=== PATIENT | female | born 1960 | race Caucasian/White ===

== ENCOUNTER → 2018-04-24 09:05 | Outpatient (REF) | payer BC, SELFPAY ==
[2018-04-24 21:25] LABS: Anion Gap 13.2 mmol/L (3-11); BUN 18 mg/dL (7-18); CO2 24.8 mmol/L (21.0-32.0); CREATININE 0.65 mg/dL (0.55-1.02); Calcium 9.2 mg/dL (8.5-10.1); Chloride 102 mmol/L (98-107); Glucose 164 mg/dL (70-100); Potassium 4.1 mmol/L (3.5-5.1); Sodium 140 mmol/L (136-145)
== END ==
LOC: NCHCN 09:05
PROVIDERS: PCP Nurse Practitioner Family; Visit Provider Nurse Practitioner Family
DX: Z00.00 Encounter for general adult medical examination without abnormal findings (principal); I10 Essential (primary) hypertension
CPT/HCPCS: 80048

== ENCOUNTER 2018-10-13 12:56 | Outpatient (REF) | payer BC, SELFPAY | END 2018-10-13 13:16 | LOC: NCHCN 12:56 | PROVIDERS: PCP Nurse Practitioner Family; Visit Provider Nurse Practitioner Family | DX: R30.0 Dysuria (principal) | CPT/HCPCS: 87077; 87086; 87186 ==

== ENCOUNTER 2019-07-16 11:10 | Outpatient (REF) | payer BC, SELFPAY ==
[2019-07-16 20:52] LABS: ALT 36 U/L (14-59); AST 17 U/L (15-37); Albumin 4.4 g/dL (3.4-5.0); Alkaline Phosphatase 119 U/L (46-116); Anion Gap 10.2 mmol/L (3-11); BUN 11 mg/dL (7-18); Bilirubin, Total 0.4 mg/dL (0.2-1.0); CO2 28.8 mmol/L (21.0-32.0); CREATININE 0.79 mg/dL (0.55-1.02); Chloride 99 mmol/L (98-107); Glucose 182 mg/dL (70-100); Potassium 4.3 mmol/L (3.5-5.1); Sodium 138 mmol/L (136-145); Total Protein 8.1 g/dL (6.4-8.2)
[2019-07-16 20:58] LABS: COMMENT (LAB VIEW ONLY) 64.69 mg/dL
== END 2019-07-16 11:30 ==
LOC: NCHCN 11:10
PROVIDERS: PCP Nurse Practitioner Family; Visit Provider Nurse Practitioner Family
DX: Z00.00 Encounter for general adult medical examination without abnormal findings (principal); E11.9 Type 2 diabetes mellitus without complications; I10 Essential (primary) hypertension
CPT/HCPCS: 80053; 82043; 82570

== ENCOUNTER 2019-07-30 01:37 | Outpatient (CLI) | payer BC, SELFPAY ==
--- NOTE | 2019-07-30 08:26 | DI.MAMMO_ITS ---
EXAM: MAMMO SCREENING CLINICAL HISTORY: SCREENING, WELL ADULT EXAM, Z00.00 TECHNIQUE: Mammograms were interpreted according to the usual protocol including computer analysis w [employer] CAD system, tomosynthesis and C-view imaging. COMPARISON: [id number] FINDINGS: The breasts are composed of heterogeneously dense tissue, breast density category C. There are no do minant masses or microcalcifications. There has been no significant interval change in comparison wi th the previous exams. IMPRESSION: Category 1, negative mammogram. Routine yearly screening mammograms are recommended. BI-RADS Cat 1 - Negative Breast Density - Category C - Heterogeneously dense
== END 2019-07-30 01:57 ==
PROVIDERS: PCP Nurse Practitioner Family; Visit Provider Nurse Practitioner Family
DX: Z00.00 Encounter for general adult medical examination without abnormal findings (principal); Z12.31 Encounter for screening mammogram for malignant neoplasm of breast
CPT/HCPCS: 77063; 77067

== ENCOUNTER 2020-03-11 08:24 | Outpatient (CLI) | payer BC, SELFPAY ==
[2020-03-11 22:52] LABS: COVID-19 RT-PCR UVMMC Result Negative (Negative)
== END 2020-03-11 08:44 ==
PROVIDERS: PCP Nurse Practitioner Family; Visit Provider Surgery
DX: Z11.59 Encounter for screening for other viral diseases (principal); Z01.818 Encounter for other preprocedural examination
CPT/HCPCS: U0003

== ENCOUNTER 2020-04-15 07:21 | Outpatient (CLI) | payer BC, SELFPAY ==
[2020-04-17 00:30] LABS: COVID-19 RT-PCR Result NEGATIVE (Negative)
== END 2020-04-15 07:41 ==
PROVIDERS: PCP Nurse Practitioner Family; Visit Provider Surgery
DX: Z11.59 Encounter for screening for other viral diseases (principal); Z01.818 Encounter for other preprocedural examination
CPT/HCPCS: U0003

== ENCOUNTER 2020-06-14 22:19 | Outpatient (REF) | payer BC, SELFPAY ==
[2020-06-14 21:47] LABS: HCT 37.8 % (36.0-46.0); MCH 28.8 pg (27.0-33.0); MCHC 31.7 % (32.0-36.0); MCV 90.9 fL (80-95); MPV 10.5 fL (8.0-11.0); Platelet Count 294 10^3/uL (130-400); RBC 4.16 10^6/uL (3.93-5.22); RDW 12.5 % (11.7-14.6); RDW-SD 41.5 fL; WBC 10.68 10^3/uL (4.4-10.8)
[2020-06-14 22:09] LABS: Iron 35 ug/dL (50-170)
[2020-06-14 22:35] LABS: ALT 18 U/L (14-59); AST 7 U/L (15-37); Albumin 3.8 g/dL (3.4-5.0); Alkaline Phosphatase 100 U/L (46-116); Bilirubin, Total 0.2 mg/dL (0.2-1.0); CREATININE 0.81 mg/dL (0.55-1.02); Ferritin 190 ng/mL (8-252); TSH 1.32 uIU/mL (0.36-3.74); Total Protein 7.1 g/dL (6.4-8.2); Vitamin B12 412 pg/mL (193-986)
[2020-06-14 22:49] LABS: Bilirubin, Direct 0.07 mg/dL (0.00-0.20)
[2020-06-16 04:57] LABS: Vitamin D 25 Total 15.2 ng/ml (30-100)
== END 2020-06-14 22:39 ==
LOC: NCHCN 22:19
PROVIDERS: PCP Nurse Practitioner Family; Visit Provider Physician Assistant
DX: E66.01 Morbid (severe) obesity due to excess calories (principal); Z68.38 Body mass index [BMI] 38.0-38.9, adult
CPT/HCPCS: 80076; 82306; 85027; 82565; 82607; 82728; 83540; 84443

== ENCOUNTER 2020-07-18 20:34 | Outpatient (REF) | payer BC, SELFPAY ==
[2020-07-18 22:32] LABS: COMMENT (LAB VIEW ONLY) 15.91 mg/dL
== END 2020-07-18 20:54 ==
LOC: NCHCN 20:34
PROVIDERS: PCP Nurse Practitioner Family; Visit Provider Nurse Practitioner Family
DX: E11.9 Type 2 diabetes mellitus without complications (principal); I10 Essential (primary) hypertension
CPT/HCPCS: 82043; 82570

== ENCOUNTER 2020-07-25 14:28 | Outpatient (REF) | payer SELFPAY ==
[2020-07-30 12:24] LABS: Patient Race White; SARS-CoV-2 RNA Undetected (Undetected); SARS-CoV-2 Specimen Source Nasal
== END 2020-07-25 14:48 ==
LOC: NCHCN 14:28
PROVIDERS: PCP Nurse Practitioner Family; Visit Provider Nurse Practitioner Family
DX: Z20.828 Contact with and (suspected) exposure to other viral communicable diseases (principal)
CPT/HCPCS: U0003

== ENCOUNTER 2020-08-01 18:07 | Outpatient (REF) | payer BC, SELFPAY ==
[2020-08-03 17:09] LABS: SARS-CoV-2 RNA Not Detected (NotDetected); SARS-CoV-2 RNA Source Nasal/Nares
== END 2020-08-01 18:27 ==
LOC: NCHCN 18:07
PROVIDERS: PCP Nurse Practitioner Family; Visit Provider Nurse Practitioner Family
DX: Z20.828 Contact with and (suspected) exposure to other viral communicable diseases (principal)
CPT/HCPCS: U0003

== ENCOUNTER 2020-08-23 08:04 | Outpatient (REF) | payer BC, SELFPAY ==
[2020-08-23 21:41] LABS: HCT 40.1 % (36.0-46.0); MCH 29.1 pg (27.0-33.0); MCHC 32.4 % (32.0-36.0); MCV 89.7 fL (80-95); MPV 10.6 fL (8.0-11.0); Platelet Count 291 10^3/uL (130-400); RBC 4.47 10^6/uL (3.93-5.22); RDW 12.6 % (11.7-14.6); RDW-SD 41.7 fL; WBC 11.42 10^3/uL (4.4-10.8)
[2020-08-23 22:08] LABS: Iron 56 ug/dL (50-170)
[2020-08-23 22:19] LABS: Anion Gap 10.8 mmol/L (3-11); BUN 13 mg/dL (7-18); CO2 27.2 mmol/L (21.0-32.0); CREATININE 0.88 mg/dL (0.55-1.02); Calcium 9.3 mg/dL (8.5-10.1); Chloride 100 mmol/L (98-107); Ferritin 165 ng/mL (8-252); Glucose 151 mg/dL (74-106); Potassium 4.2 mmol/L (3.5-5.1); Sodium 138 mmol/L (136-145)
[2020-08-23 22:31] LABS: Vitamin D 25 Total 20.9 ng/ml (30-100)
== END 2020-08-23 08:24 ==
LOC: NCHCN 08:04
PROVIDERS: PCP Nurse Practitioner Family; Visit Provider Nurse Practitioner Family
DX: I10 Essential (primary) hypertension (principal); E11.9 Type 2 diabetes mellitus without complications; E61.1 Iron deficiency; E55.9 Vitamin D deficiency, unspecified; K21.9 Gastro-esophageal reflux disease without esophagitis; Z51.81 Encounter for therapeutic drug level monitoring
CPT/HCPCS: 80048; 82306; 85027; 82728; 83540; 83735

== ENCOUNTER 2020-09-08 00:41 | Outpatient (CLI) | payer BC, SELFPAY ==
--- NOTE | 2020-09-08 13:19 | DI.MAMMO_ITS ---
EXAM: MG MAMMO SCREENING CLINICAL HISTORY: SCREENING,Z12.39 TECHNIQUE: Bilateral full field digital CC and MLO mammographic images were obtained with 3D tomosyn thesis and utilizing computer aided detection (CAD). COMPARISON: Available for comparison. FINDINGS: Masses/Architectural Distortion: None seen. Microcalcifications: No suspicious pleomorphic-type are seen. Skin Thickening/Nipple Retraction: None. IMPRESSION: 1. No significant interval change with no specific features of malignancy noted. 2. Unless there is more urgent need, screening mammography is recommended, as per [employer] guidelines. BI-RADS Category 1 - Negative Breast Density - Category C - Heterogeneously dense Breast density category C or D implies that the patient has dense breast tissue. Dense breast tissue is very common and is not abnormal but dense breast tissue can make it harder to find cancer on a ma mmogram. Also, dense breast tissue may increase their breast cancer risk. This information about the result of the mammogram report was provided to the patient to raise their awareness. Use this report when you speak with the patient about their risks for breast cancer, which includes their family hist ory. At that time, you may recommend for more screening tests (Ultrasound or MRI) as they might be us eful based on their risk. A negative radiographic report should not delay biopsy if a dominant or clinically suspicious mass is present. Up to ten percent of cancers are not identified on mammography. A negative report may reinforce clinical impression. Adenosis and dense breasts may obscure an underlying neoplasm. False positive reports average 6 to 10%. Patient will receive a letter notifying them of these results.
== END 2020-09-08 01:01 ==
PROVIDERS: PCP Nurse Practitioner Family; Visit Provider Nurse Practitioner Family
DX: Z12.31 Encounter for screening mammogram for malignant neoplasm of breast (principal)
CPT/HCPCS: 77063; 77067

== ENCOUNTER 2021-02-03 09:37 | Outpatient (REF) | payer BC, SELFPAY ==
--- NOTE | 2021-02-02 11:30 | PAPFT_PTH ---
PATIENT: Shayy Marx LOC: [facility]#:[id number] AGE/SX: 60/F ROOM: RE02/03/[address]: Rosalba Bettencourt : 1960 BED: DIS: 02/03/2021 SPEC #: [id number] RECD: 02/03/21 11:52 STATUS: GILLIAN REXavier #: [id number] FABIAN: 02/02/21 11:[address]: Rosalba Ortiz DEPT: [facility], [facility] Cytology RECD BY: Claire Longo Tissues: 1 - CX/ENDOCX FOR PAP SMEARS Procedures: PAP THIN PREP/UVM Screening HPV DNA PROBE Comments: [id number]
--- NOTE | 2021-02-02 11:30 | ENDOMET_PTH ---
PATIENT: Shayy Marx LOC: [facility] U#:[id number] AGE/SX: 60/F ROOM: RE02/03/[address]: Rosalba Bettencourt : 1960 BED: DIS: 02/03/2021 SPEC #: [id number] RECD: 02/03/21 09:56 STATUS: GILLIAN REXavier #: [id number] FABIAN: 02/02/21 11:[address]: Rosalba Ortiz DEPT: Surgical Specimen RECD BY: Claire Longo Tissues: 1 - ENDOMETRIUM BX/ENEDELIAETTE Procedures: GROSS AND MICRO LEVEL 4 Comments: [id number]
== END 2021-02-03 09:38 | disposition home or self-care (01) ==
LOC: NCHCN 09:37
PROVIDERS: PCP Nurse Practitioner Family; Visit Provider Nurse Practitioner Family
DX: N85.8 Other specified noninflammatory disorders of uterus (principal); N95.0 Postmenopausal bleeding; N88.8 Other specified noninflammatory disorders of cervix uteri; Z12.4 Encounter for screening for malignant neoplasm of cervix; R87.610 Atypical squamous cells of undetermined significance on cytologic smear of cervix (ASC-US); Z11.51 Encounter for screening for human papillomavirus (HPV)
CPT/HCPCS: 88142; 88305; 87624

== ENCOUNTER 2021-08-01 12:31 | Outpatient (REF) | payer BC, SELFPAY ==
[2021-08-01 22:05] LABS: COMMENT (LAB VIEW ONLY) 15.85 mg/dL; Microalb ug/mg Crea 19.6 ug/mg Cr
== END 2021-08-01 12:32 | disposition home or self-care (01) ==
LOC: NCHCN 12:31
PROVIDERS: PCP Nurse Practitioner Family; Visit Provider Nurse Practitioner Family
DX: I10 Essential (primary) hypertension (principal); R80.9 Proteinuria, unspecified; Z86.39 Personal history of other endocrine, nutritional and metabolic disease
CPT/HCPCS: 82043; 82570

== ENCOUNTER 2021-09-11 03:15 | Outpatient (CLI) | payer BC, SELFPAY ==
--- NOTE | 2021-09-11 13:47 | DI.US_ITS ---
APPROVED REPORT EXAM: Comprehensive 2D, Doppler, and color-flow Echocardiogram Other Information Study Quality: Good Conclusion Normal left ventricular wall thickness and chamber size. Estimated ejection fraction is 55 to 60%. There are no segmental wall motion abnormalities Normal right ventricular size and systolic function Both atria are normal in size There is no structural or hemodynamically significant valvular disease Mildly dilated ascending aorta measuring 3.82 cm Wall motion Left Ventricle The left ventricle is normal size. The left ventricular systolic function is normal. The left ventric ular ejection fraction is within the normal range. There is normal left ventricular wall thickness. T here is normal LV segmental wall motion. There is no ventricular septal defect visualized. LVEF is 58 %. Right Ventricle The right ventricle is normal size. The right ventricular systolic function is normal. The RVSP is 25 .0_ mmHg. Atria The left atrium size is normal. The right atrium size is normal. The interatrial septum is intact wit h no evidence for an atrial septal defect. Aortic Valve The aortic valve is normal in structure. Aortic valve is trileaflet. There is no aortic valvular sten osis. No aortic regurgitation is present. Mitral Valve The mitral valve is normal in structure. No evidence of mitral valve stenosis. Trace mitral regurgita tion. Tricuspid Valve The tricuspid valve is normal in structure. There is no tricuspid valve stenosis. Trace tricuspid reg urgitation. Pulmonic Valve The pulmonary valve is normal in structure. There is no pulmonic valvular stenosis. Trace pulmonic re gurgitation. Great Vessels The aortic root is normal in size. The ascending aorta is mildly dilated.3.82 cm IVC is normal in siz e and collapses >50% with inspiration. Pericardium There is no pericardial effusion. 2D Dimensions IVSD d PLAX 0.95 cm F: 0.6-1.0 LV Vol A2C d MOD 123.5 mL LVPW d PLAX 0.96 cm F: 0.6 - 1.0 LV Vol A4C d MOD 116.3 mL LVID d PLAX 4.37 cm F: 3.8 - 5.2 LA vol/ BSA A2C s A-L 27.7 mL/m2 LVDs 2.85 cm F: 2.2 - 3.5 LA vol/ BSA A4C s A-L 27.1 mL/m2 Ao Root d 2.48 cm F: 2.7 - 3.3 LA Vol/ BSA Biplane s A-L 28.7 mL/m2 RA Area A4C 15.97 cm2 LA Area A4C s MOD 18.77 cm2 RA Vol/ BSA A4C s A-L 19.6 mL/m2 LA Area A2C s MOD 19.85 cm2 Ao Asc Diam d 3.82 cm F: 2.3 - 3.1 LV EF A4C MOD 58.2 % LV EF Teichholz 64.1 % LV EF A2C MOD 59.1 % LVEF (Benitez's) 58.44 % F: 54 - 74 LV EF Biplane MOD 58.4 % LV Volume 90.62 mL F: 46 - 106 SV 70.77 mL LV Volume Index 45.08 mL/m2 F: 29 - 61 SV Index 35.15 mL/m2 LV Vol Biplane MOD 121.1 mL FS 34.65 % M-Mode TAPSE 2.56 cm (M/F) >1.7 LV Diastology MV E' medial 0.133 (>0.07 m/s) E/A Ratio 1.4 LV E/e MED 9.20 (<14) MV E Vmax 1.23 (0.4-1.3 m/s) MV E' lateral 0.109 (>0.1 m/s) MV A Vmax 0.90 (0.4-1.3 m/s) LV E/e LAT 11.30 (<14) MV E/A Ratio 1.36 MV E/E' medial 9.25 MV E/E' lateral 11.33 Aortic Valve LVOT Area 2.56 cm2 AoV Area Vmax 1.82 cm2 LVOT Vmax 1.19 m/s AoV Area/ BSA (Vmax) 0.90 cm2/m2 LVOT Mean Uche. 0.81 m/s JULIA Mean Uche. 1.71 cm2 LVOT Peak Grad 5.6 mmHg JULIA Mean Uche. Index 0.85 cm2/m2 LVOT Mean Grad 3.1 mmHg LVOT VTI 0.317 m LVOT Diam s 1.80 cm AoV Vmax 1.67 m/s Velocity Ratio 0.71 AoV Mean Uche. 1.22 m/s AoV Peak Grad 11.1 mmHg LVOT SV 81.19 mL AoV Mean Grad 6.5 mmHg AoV VTI 0.415 m AoV Area VTI 1.96 cm2 AoV Area/ BSA (VTI) 0.97 cm/m2 Mitral Valve MV DT 191 (160-240 msec) MV PHT 55 msec MV Area PHT 3.98 cm2 MV VTI 0.482 m MV Area VTI 1.69 (4.0-6.0 cm2) Pulmonary Valve PV Vmax 1.26 (0.5-1.5 m/s) RVOT Peak Gr. 3.54 mmHg PV Peak Grad 6.3 mmHg RVOT Mean Gr. 1.90 mmHg PV Mean Grad 3.1 mmHg RVOT VTI 0.217 m PV VTI 0.269 m RVOT Vmax 0.94 m/s Tricuspid Valve TR Peak Grad 22.0 mmHg TR Vmax 2.35 m/s RA Pressure 3.00 mmHg RVSP (TR) 25.0 mmHg
--- NOTE | 2021-09-11 15:00 | DI.MAMMO_ITS ---
Exam(s) MAMMO SCREENING EXAM: MAMMO SCREENING CLINICAL HISTORY: YEARLY MAMMO SCREENING, Z12.31. TECHNIQUE: Bilateral full field digital CC and MLO mammographic images were obtained with 3D tomosyn thesis and utilizing computer aided detection (CAD). COMPARISON: Prior mammograms dating back to 2012, the most recent being August 2020. Significant family history. Mother was diagnosed with breast cancer prior to age 50. FINDINGS: There has been no significant change in the appearance and distribution of fibroglandular tissue. Sk in mole over the upper outer quadrant of the left breast is noted unchanged. This was marked as a sk in mole in 2012 and is unchanged from that time. No new significant radiograph findings in left breast. In the right breast on 3D MLO imaging there is an asymmetric density-noncalcified nodule measuring ap proximately 4 x 3 millimeters located 4 cm in from the nipple, not evident on prior studies. No fausto gnant-appearing microcalcification groups is region or elsewhere in either breast There is no significant architectural distortion nor skin thickening-retraction. IMPRESSION: 1. No radiographic evidence of malignancy in left breast. 2. Right breast nodular density as described above, as seen on 3D MLO view. Spot compression 3D view and ultrasound recommended BI-RADS Category 0 - Assessment Incomplete: Need additional imaging evaluation Breast Density - Category C - Heterogeneously dense Breast density Category C or D implies that the patient has dense breast tissue. Dense breast tissue can make it harder to find cancer on a mammogram. Dense breast tissue is also associated with an incr eased risk of breast cancer. This information about the result of the mammogram report was provided to the patient to raise their awareness. Use this report when you speak with the patient about their risks for breast cancer, which includes their family history. At that time, you may recommend additional screening tests (Ultrasoun d or MRI) as these tests may add significant information. A negative radiographic report should not delay biopsy if a dominant or clinically suspicious mass is present. Up to ten percent of cancers are not identified on mammography. A negative report may reinforce clinical impression. Adenosis and dense breasts may obscure an underlying neoplasm. False positive reports average 6 to 10%. Patient will receive a letter notifying them of these results.
== END 2021-09-11 03:35 ==
PROVIDERS: PCP Nurse Practitioner Family; Visit Provider Nurse Practitioner Family
DX: R01.1 Cardiac murmur, unspecified (principal); I77.810 Thoracic aortic ectasia; Z12.31 Encounter for screening mammogram for malignant neoplasm of breast; R92.8 Other abnormal and inconclusive findings on diagnostic imaging of breast
CPT/HCPCS: 77063; 77067; 93306

== ENCOUNTER 2021-09-20 02:07 | Outpatient (CLI) | payer BC, SELFPAY ==
--- NOTE | 2021-09-20 13:00 | DI.MAMMO_ITS ---
Exam(s) MG MAMMO SCREEN CALL BACK UNI US BREAST RT LIMITED EXAM: US BREAST RT LIMITED CLINICAL HISTORY: ASYMMETRIC DENSITY-NONCALCIFIED NODULE 4 CM FROM NIPPLE TECHNIQUE: Ultrasound performed using standard protocol. COMPARISON: US US ECHOCARDIOGRAM from 09/11/2021 MG MG MAMMO SCREEN CALL BACK UNI from 09/20/2021 FINDINGS: Additional mammographic views of the right breast and right breast ultrasound are interpreted in conj unction. These examinations were obtained to evaluate well-circumscribed nodule seen on recent mammo gram in the 6 o'clock position in the right breast. Additional mammographic views fail to show this nodule persist. Breast ultrasound shows an approximately 3 millimeter in diameter cyst of the 6 o'cl ock position which may correspond to the mammographically identified nodule. Additionally, about 2 cm from the nipple in the 9 o'clock position, there is a bilobed 4 x 6 x 3 mill imeter in diameter low echogenicity homogeneous well-circumscribed nodule without internal vascular f low. This may represent a small hemorrhagic cyst or fibroadenoma. Malignancy not excluded, follow-u p right breast ultrasound recommended in 6 months to assess the stability of this small nodule. IMPRESSION: 6 millimeter nodule, indeterminate but likely benign, seen on ultrasound only in the 9 o'clock positi on 2 cm from the nipple. Malignancy not excluded, follow-up right breast ultrasound recommended in 6 months. BI-RADS Cat 3 - 6 month - Probably Benign Finding: Recommend follow-up imaging in 6 months Breast Density - Category C - Heterogeneously dense DATA REPOSITORY:
== END 2021-09-20 02:27 ==
PROVIDERS: PCP Nurse Practitioner Family; Visit Provider Nurse Practitioner Family
DX: Z12.31 Encounter for screening mammogram for malignant neoplasm of breast (principal); R92.8 Other abnormal and inconclusive findings on diagnostic imaging of breast; N60.01 Solitary cyst of right breast; N63.11 Unspecified lump in the right breast, upper outer quadrant
CPT/HCPCS: 76642; 77063; 77067

== ENCOUNTER 2022-01-29 18:37 | Outpatient (REF) | payer BC, SELFPAY ==
[2022-01-29 15:54] LABS: HCT 38.5 % (36.0-46.0); HGB 12.6 g/dL (11.2-15.7); MCH 31.3 pg (27.0-33.0); MCHC 32.7 % (32.0-36.0); MCV 96 fL (80-95); Platelet Count 199 10^3/uL (130-400); RBC 4.02 10^6/uL (3.93-5.22); RDW 12.5 % (11.7-14.6); RDW-SD 43.6 fL; WBC 7.28 10^3/uL (4.4-10.8)
[2022-01-29 16:10] LABS: Hemoglobin A1C 5.1 % (<5.7)
[2022-01-29 17:07] LABS: Iron 127 ug/dL (50-170); Total Iron Binding Capacity 338 ug/dL (250-450); Transferrin Sat 38 % (15-50)
[2022-01-29 17:23] LABS: Vitamin D 25 Total 38.3 ng/mL (30-100)
[2022-01-29 17:26] LABS: Anion Gap 9.8 mmol/L (3-11); BUN 15 mg/dL (7-18); CO2 28.2 mmol/L (21.0-32.0); CREATININE 0.8 mg/dL (0.55-1.02); Calculated LDL 151 mg/dL (<100); Chloride 105 mmol/L (98-107); Cholesterol 233 mg/dL (<200); Glucose 100 mg/dL (74-106); HDL Cholesterol 65 mg/dL (40-60); Potassium 4.3 mmol/L (3.5-5.1); Sodium 143 mmol/L (136-145); Triglyceride 86 mg/dL (<150); Vitamin B12 984 pg/mL (193-986)
== END 2022-01-29 18:38 | disposition home or self-care (01) ==
LOC: NCHCN 18:37
PROVIDERS: PCP Nurse Practitioner Family; Visit Provider Nurse Practitioner Family
DX: I10 Essential (primary) hypertension (principal); E55.9 Vitamin D deficiency, unspecified; E61.1 Iron deficiency; E66.9 Obesity, unspecified; Z86.39 Personal history of other endocrine, nutritional and metabolic disease; Z98.84 Bariatric surgery status
CPT/HCPCS: 80048; 80061; 82306; 85027; 82607; 83036; 83540; 83550

== ENCOUNTER → 2022-04-06 01:36 | Outpatient (CLI) | payer BC, SELFPAY ==
--- NOTE | 2022-04-06 | DI.US_ITS ---
Exam(s) US NEEDLE LOCAL BREAST WO RAD EXAM: US NEEDLE LOCAL BREAST WO RAD CLINICAL HISTORY: RT BREAST MASS, ULTRASOUND GUIDED BIOPSY. Right Breast. TECHNIQUE: Ultrasound was provided for Dr. Duran for guidance with right breast biopsy. COMPARISON: MG MG MAMMO SCREENING from 09/11/2021 MG MG MAMMO SCREEN CALL BACK UNI from 09/20/2021 US US BREAST RT LIMITED from 09/20/2021 US US BREAST RT COMPLETE from 03/20/2022 FINDINGS: The previously noted mass was identified in the 9 o'clock position 3 cm from the nipple. 2 biopsy sa mples were obtained. A tissue marker clip was placed. Please see procedure note for details. IMPRESSION: Successful Ultrasound-guided Breast Biopsy.
--- NOTE | 2022-04-06 13:11 | BREAST_PTH ---
PATIENT: Shayy Marx LOC: [facility] U#:[id number] AGE/SX: 65/F ROOM: RE04/06/[address]: Cesia Duran MD : 1960 BED: DIS: SPEC #: [id number] RECD: 04/06/22 13:34 STATUS: GILLIAN HAGAN #: [id number] FABIAN: 04/06/22 13:[address]: Cesia Duran DEPT: Surgical Specimen RECD BY: Yue Miranda ENTERED: 04/06/22 13:35 SP TYPE: Breast OTHR DR: Rosalba Bettencourt Tissues: 1 - BREAST BX NEEDLE Procedures: GROSS AND MICRO LEVEL 4 Comments: [id number]
--- NOTE | 2022-04-06 16:18 | W.PM.OP ---
Date of service: 04/06/22 Time of Service: 16:18 Operative Note Operative Note DATE OF PROCEDURE: 04/06/22 PRE-OP DIAGNOSIS: Right Breast lesion POST-OP DIAGNOSIS: same PROCEDURE: US guided Core needle biopsy SURGEON: Cesia Duran Refer to Anesthesia Record PATHOLOGY: other (core needle biopsy) COMPLICATIONS: None Patient was transported to: no change Patient's condition: stable Procedure Description: Pre-op Dx: Right Breast Mass Post-op Dx: same Procedure: US quided Right Breast Biopsy Surgeon: Santos Duran MD Anesthesia: Local anesthesia with 1% Lidocaine Blood loss: 2 cc Specimen: Core needle biopsy Complications: no immediate complications Procedure: After informed consent was obtained the patient was placed in a supine position. Us was done of the Breast and the lesion was localized by the US tech. The skin was cleaned with alcohol and infiltrated with the above local anesthetic. The skin was then prepped. An incision was made with an 11 blade. Using a 14 gauge core needle 2 specimens were removed and placed on telfa and placed in formalin. A small clip was then placed into the lesion under US guidence. The skin was cleaned and dried and a band aid was applied. The patient tolerated the procedure well and there were no immediate complications.
== END ==
PROVIDERS: PCP Nurse Practitioner Family; Visit Provider Surgery
DX: N60.11 Diffuse cystic mastopathy of right breast (principal)
CPT/HCPCS: 19083; 88305; 76942

== ENCOUNTER 2022-08-03 14:58 | Outpatient (REF) | payer BC, SELFPAY ==
[2022-08-03 21:10] LABS: BUN 19 mg/dL (7-18); CREATININE 0.8 mg/dL (0.55-1.02); Estimated GFR 84.82 (mL/min/1.73m2)
== END 2022-08-03 14:59 | disposition home or self-care (01) ==
LOC: NCHCN 14:58
PROVIDERS: PCP Nurse Practitioner Family; Visit Provider Nurse Practitioner Family
DX: I77.810 Thoracic aortic ectasia (principal)
CPT/HCPCS: 84520; 82565

== ENCOUNTER 2022-09-14 00:33 | Outpatient (CLI) | payer BC, SELFPAY ==
--- NOTE | 2022-09-14 07:15 | DI.MAMMO_ITS ---
Exam(s) US BREAST RT LIMITED MG MAMMO SCREENING EXAM: MG MAMMO SCREENING and right breast ultrasound CLINICAL HISTORY: screening,z12.31 TECHNIQUE: Mammograms were interpreted according to the usual protocol including computer analysis w ith CAD system, tomosynthesis and 2D and C-view imaging. Entire right breast ultrasound was performed. COMPARISON: Mammograms from 11 September 2021, 20 September 2021 as well as ultrasound from 20 March 2022 and 06 April 2022. Exams back to 2014 were also reviewed. FINDINGS: Bilateral mammograms: The breasts are composed of heterogeneously dense fibroglandular tissue, breast density category C. A biopsy marker is now noted in the lateral central right breast tissue. No nodule is visible on cassy mogram. No suspicious masses or suspicious calcifications are noted in either breast. Right breast ultrasound: Right breast ultrasound shows a smoothly marginated oval nodule containing a biopsy marker clip in t he 9 o'clock position 2 centimeters from the nipple. There is no internal blood flow. It measures 7 x 4 x 6 millimeters. No suspicious features. IMPRESSION: Biopsy marker clip is noted within the previously noted nodule identified on ultrasound. No suspicio us findings on mammography. BI-RADS Cat 2 - Benign Findings Breast Density - Category C - Heterogeneously dense A negative radiographic report should not delay biopsy if a dominant or clinically suspicious mass is present. Up to ten percent of cancers are not identified on mammography. A negative report may reinforce clinical impression. Adenosis and dense breasts may obscure an underlying neoplasm. False positive reports average 6 to 10%. Patient will receive a letter notifying them of these results. The patient will receive a letter notifying them of these results.
== END 2022-09-14 00:53 ==
LOC: DI 00:33
PROVIDERS: PCP Nurse Practitioner Family; Visit Provider Surgery
DX: Z12.31 Encounter for screening mammogram for malignant neoplasm of breast (principal); N63.11 Unspecified lump in the right breast, upper outer quadrant; Z98.890 Other specified postprocedural states
CPT/HCPCS: 76642; 77063; 77067

== ENCOUNTER 2023-05-27 17:44 | Outpatient (REF) | payer BC, SELFPAY ==
[2023-05-27 21:08] LABS: HCT 37.5 % (36.0-46.0); HGB 12.6 g/dL (11.2-15.7); MCHC 33.6 % (32.0-36.0); MCV 92 fL (80-95); MPV 10.2 fL (8.0-11.0); Platelet Count 196 10^3/uL (130-400); RBC 4.07 10^6/uL (3.93-5.22); RDW 12.6 % (11.7-14.6); RDW-SD 42.4 fL; WBC 8.56 10^3/uL (4.4-10.8)
[2023-05-27 21:24] LABS: Hemoglobin A1C 5.8 % (<5.7)
[2023-05-27 21:49] LABS: Vitamin D 25 Total 34.6 ng/mL (30-100)
[2023-05-27 21:56] LABS: ALT 27 U/L (14-59); AST 18 U/L (15-37); Alkaline Phosphatase 103 U/L (46-116); Anion Gap 8.7 mmol/L (3-11); BUN 16 mg/dL (7-18); Bilirubin, Total 0.2 mg/dL (0.2-1.0); CO2 27.3 mmol/L (21.0-32.0); CREATININE 0.7 mg/dL (0.55-1.02); Calcium 9.2 mg/dL (8.5-10.1); Calculated LDL 157 mg/dL (<100); Chloride 105 mmol/L (98-107); Cholesterol 245 mg/dL (<200); Estimated GFR 98.95 (mL/min/1.73m2); Glucose 103 mg/dL (74-106); HDL Cholesterol 67 mg/dL (40-60); Potassium 4.3 mmol/L (3.5-5.1); Sodium 141 mmol/L (136-145); TSH 1.49 uIU/mL (0.36-3.74); Total Protein 7.3 g/dL (6.4-8.2); Triglyceride 107 mg/dL (<150); Vitamin B12 1092 pg/mL (193-986)
[2023-05-27 21:58] LABS: Folate > 20.0 ng/mL (8.6-20.0)
[2023-05-27 22:09] LABS: Iron 48 ug/dL (50-170); Total Iron Binding Capacity 322 ug/dL (250-450); Transferrin Sat 15 % (15-50)
== END 2023-05-27 17:45 | disposition home or self-care (01) ==
LOC: NCHCN 17:44
PROVIDERS: PCP Nurse Practitioner Family; Referring Provider Physician Assistant; Visit Provider Nurse Practitioner Family
DX: I10 Essential (primary) hypertension (principal); E78.5 Hyperlipidemia, unspecified; Z86.39 Personal history of other endocrine, nutritional and metabolic disease; Z98.84 Bariatric surgery status; E55.9 Vitamin D deficiency, unspecified
CPT/HCPCS: 80053; 80061; 82306; 85027; 82607; 82746; 83036; 83540; 83550; 84443

== ENCOUNTER → 2023-09-18 03:52 | Outpatient (CLI) | payer BC, SELFPAY ==
--- NOTE | 2023-09-18 | DI.MAMMO_ITS ---
Exam(s) MAMMO SCREENING EXAM: MAMMO SCREENING CLINICAL HISTORY: SCREENING MAMMO FOR BREAST CANCER Z12.31 TECHNIQUE: Mammograms were interpreted according to the usual protocol including computer analysis w [employer] CAD system, tomosynthesis and C-view imaging. COMPARISON: 2014 through 2021 FINDINGS: The breasts are composed of heterogeneously dense fibroglandular densities, Breast Density category C . No suspicious masses or suspicious microcalcifications are seen. A biopsy marker clip is again noted in the upper outer quadrant of the right breast. No skin thickening or abnormal axillary lymph nodes are seen. There has been no significant change from prior exams. IMPRESSION: BI-RADS Category 1, Negative mammogram. Yearly screening mammography is recommended. Breast Density Category C, heterogeneously Dense. The mammogram demonstrates the patient's breast tissue is dense. Dense breast tissue is very common a nd is not abnormal but dense breast tissue can make it harder to find cancer on a mammogram. Also, de nse breast tissue may increase breast cancer risk. This information about the result of the mammogram report was provided to the patient to raise their awareness. Use this report when you speak with the patient about their risks for breast cancer, which includes their family history. At that time, you may recommend additional screening tests (Ultrasound or MRI) as they might be useful based on their r isk. A negative radiographic report should not delay biopsy if a dominant or clinically suspicious mass is present. Up to ten percent of cancers are not identified on mammography. A negative report may reinforce clinical impression. Adenosis and dense breasts may obscure an underlying neoplasm. False positive reports average 6 to 10%.
== END ==
PROVIDERS: PCP Nurse Practitioner Family; Visit Provider Nurse Practitioner Family
DX: Z12.31 Encounter for screening mammogram for malignant neoplasm of breast (principal)
CPT/HCPCS: 77063; 77067

== ENCOUNTER 2024-05-08 08:51 | Outpatient (REF) | payer BC, SELFPAY ==
[2024-05-08 14:50] LABS: HCT 39.2 % (36.0-46.0); MCH 31.3 pg (27.0-33.0); MCHC 33.2 % (32.0-36.0); MCV 94 fL (80-95); MPV 9.8 fL (8.0-11.0); Platelet Count 232 10^3/uL (130-400); RBC 4.16 10^6/uL (3.93-5.22); RDW 12.2 % (11.7-14.6); RDW-SD 42.1 fL; WBC 8.28 10^3/uL (4.4-10.8)
[2024-05-08 15:11] LABS: Iron 89 ug/dL (50-170); Total Iron Binding Capacity 330 ug/dL (250-450); Transferrin Sat 27 % (15-50)
[2024-05-08 15:30] LABS: ALT 25 U/L (14-59); AST 16 U/L (15-37); Albumin 3.9 g/dL (3.4-5.0); Alkaline Phosphatase 106 U/L (46-116); Anion Gap 7.8 mmol/L (3-11); BUN 10 mg/dL (7-18); Bilirubin, Total 0.53 mg/dL (0.2-1.0); CO2 28.2 mmol/L (21.0-32.0); CREATININE 0.8 mg/dL (0.55-1.02); Calcium 9.2 mg/dL (8.5-10.1); Calculated LDL 143 mg/dL (<100); Chloride 104 mmol/L (98-107); Cholesterol 225 mg/dL (<200); Estimated GFR 83.78 (mL/min/1.73m2); Glucose 96 mg/dL (74-106); HDL Cholesterol 65 mg/dL (40-60); Potassium 4.1 mmol/L (3.5-5.1); Sodium 140 mmol/L (136-145); TSH 1.64 uIU/Ml (0.36-3.74); Total Protein 7.4 g/dL (6.4-8.2); Triglyceride 85 mg/dL (<150); Vitamin D 25 Total 28.7 ng/mL (30-100)
== END 2024-05-08 08:52 | disposition home or self-care (01) ==
LOC: NCHCN 08:51
PROVIDERS: PCP Nurse Practitioner Family; Visit Provider Nurse Practitioner Family
DX: I10 Essential (primary) hypertension (principal); E61.1 Iron deficiency; E78.5 Hyperlipidemia, unspecified; E55.9 Vitamin D deficiency, unspecified; R73.03 Prediabetes
CPT/HCPCS: 80053; 80061; 82306; 85027; 83036; 83540; 83550; 84443

== ENCOUNTER 2024-05-25 13:07 | Outpatient (REF) | payer BC, SELFPAY ==
--- NOTE | 2024-05-25 10:00 | PAPFT_PTH ---
PATIENT: Shayy Marx LOC: [facility]#:[id number] AGE/SX: 63/F ROOM: RE05/25/[address]: Rosalba Bettencourt : 1960 BED: DIS: 05/25/2024 SPEC #: [id number] RECD: 05/25/24 18:30 STATUS: GILLIAN HAGAN #: [id number] FABIAN: 05/25/24 10:[address]: Rosalba Ortiz DEPT: [facility] Cytology RECD BY: Yue Miranda Tissues: 1 - CX/ENDOCX FOR PAP SMEARS Procedures: PAP THIN PREP/UVM Screening HPV DNA PROBE Comments: [id number] (HPV 16 & 18/4)
== END 2024-05-25 13:08 | disposition home or self-care (01) ==
LOC: NCHCN 13:07
PROVIDERS: PCP Nurse Practitioner Family; Visit Provider Nurse Practitioner Family
DX: Z11.51 Encounter for screening for human papillomavirus (HPV) (principal); Z01.419 Encounter for gynecological examination (general) (routine) without abnormal findings
CPT/HCPCS: 88142; 87624

== ENCOUNTER 2024-09-29 02:59 | Outpatient (CLI) | payer BC, SELFPAY ==
--- NOTE | 2024-09-29 | DI.MAMMO_ITS ---
Exam(s) MAMMO SCREENING EXAM: MAMMO SCREENING CLINICAL HISTORY: SCREENING,Z12.31 TECHNIQUE: Mammograms were interpreted according to the usual protocol including computer analysis w [employer] CAD system, tomosynthesis and C-view imaging. COMPARISON: 2015 through 2023 FINDINGS: The breasts are composed of scattered fibroglandular densities, Breast Density category B. No suspicious masses or suspicious microcalcifications are seen. No skin thickening or abnormal axillary lymph nodes are seen. A biopsy marker is again noted in the upper outer quadrant of the right breast. There has been no significant change from prior exams. IMPRESSION: BI-RADS Category 1, Negative mammogram Yearly screening mammography is recommended. Breast Density - Category B, scattered fibroglandular densities. A negative radiographic report should not delay biopsy if a dominant or clinically suspicious mass is present. Up to ten percent of cancers are not identified on mammography. A negative report may reinforce clinical impression. Adenosis and dense breasts may obscure an underlying neoplasm. False positive reports average 6 to 10%. Patient will receive a letter notifying them of these results.
== END 2024-09-29 03:19 ==
PROVIDERS: PCP Nurse Practitioner Family; Visit Provider Nurse Practitioner Family
DX: Z12.31 Encounter for screening mammogram for malignant neoplasm of breast (principal); R92.323 Mammographic fibroglandular density, bilateral breasts
CPT/HCPCS: 77063; 77067

== ENCOUNTER 2025-05-14 15:36 | Outpatient (REF) | payer BC, SELFPAY ==
[2025-05-14 14:30] LABS: HCT 38.0 % (36.0-46.0); HGB 12.7 g/dL (11.2-15.7); MCH 31.1 pg (27.0-33.0); MCHC 33.4 % (32.0-36.0); MCV 93 fL (80-95); MPV 10.1 fL (8.0-11.0); Platelet Count 226 10^3/uL (130-400); RBC 4.09 10^6/uL (3.93-5.22); RDW 12.2 % (11.7-14.6); RDW-SD 41.8 fL; WBC 8.04 10^3/uL (4.4-10.8)
[2025-05-14 15:23] LABS: Hemoglobin A1C 5.0 % (<5.7)
[2025-05-14 15:24] LABS: ALT 27 U/L (14-59); AST 19 U/L (15-37); Albumin 3.7 g/dL (3.4-5.0); Alkaline Phosphatase 106 U/L (46-116); Anion Gap 5.9 mmol/L (3-11); BUN 10 mg/dL (7-18); Bilirubin, Total 0.5 mg/dL (0.2-1.0); CO2 29.1 mmol/L (21.0-32.0); Calcium 9.1 mg/dL (8.5-10.1); Calculated LDL 149 mg/dL (<100); Chloride 106 mmol/L (98-107); Cholesterol 227 mg/dL (<200); Estimated GFR 97.72 (mL/min/1.73m2); Glucose 82 mg/dL (74-106); HDL Cholesterol 61 mg/dL (>or=50); Potassium 4.1 mmol/L (3.5-5.1); Sodium 141 mmol/L (136-145); TSH 2.09 uIU/mL (0.36-3.74); Total Protein 7.1 g/dL (6.4-8.2); Triglyceride 86 mg/dL (<150); Vitamin B12 515 pg/mL (193-986); Vitamin D 25 Total 32 ng/mL (30-100)
[2025-05-14 15:30] LABS: Folate > 20.0 ng/mL (8.6-20.0)
== END 2025-05-14 15:37 | disposition home or self-care (01) ==
LOC: NCHCN 15:36
PROVIDERS: PCP Nurse Practitioner Family; Visit Provider Nurse Practitioner Family
DX: E55.9 Vitamin D deficiency, unspecified (principal); R73.03 Prediabetes; E61.1 Iron deficiency; I10 Essential (primary) hypertension
CPT/HCPCS: 80053; 80061; 82306; 85027; 82607; 82746; 83036; 84443